=== PATIENT | male | born 1950 | race Caucasian/White ===

== ENCOUNTER 2017-01-30 06:25 | Emergency (ER) | payer MEDICARE, OTHER ==
[~2017-01-30 06:25] MED LIST: ASPIRIN81 MG; BACLOFEN10 M1 PO; CARDURA8 MG; CARDURA8 MG PO; CATAPRES0.1 M1 PEG; CEPACOL SORE T1 EAC2 MM; COLACE100 M1 PO; ENEMEEZ283 MG/5 M PR; EXELON1 PATCH .1; FIBER 61 TAB; FISH OIL 1,21 CAP.EC; FISH OIL 11000 MG/CA PEG; GABAPENTIN300 MG PO; GLUCOPHAGE1000 M1 PO; H; HUMULIN 70/30 V10 ML; HYDRALAZINE HCL10 M1 PEG; HYDRALAZINE HCL25 M1 PO; HYDROCHLOROTH12.5 MG; LISINOPRIL-HCTZ; LISINOPRIL-HCTZ PO; LOPRESSOR50 M1 PO; LORTAB 7.5/5001 TAB; LOVASTATIN40 M1 PO; MEVACOR40 MG; MILK OF MAGNESIA PEG; NORCO 7.5/325 T1 TAB PO; NORTRIPTYLIHNE25 MG; NORVASC10 M1 PO; NORVASC5 MG; NOVOLIN 70/30 V10 ML; NOVOLIN 70/30 V10 ML SC; NOVOLIN 70100 UNITS/ SC; NOVOLIN R100 U/ML; NOVOLOG MI100 UNITS/ SC; NOVOLOG100 U/M SQ; OXYCODONE-APAP1 CA; PAMELOR50 MG PO; PERIDEX118 ML SSP; PLAVIX75 M1 PO; PLAVIX75 MG PO; POTASSIUM595 ( 99 ); POTASSIUM99 M5 PO; PRILOSEC20 MG; PRINIVIL20 MG; PROZAC20 M3 PO; PROZAC20 MG; SKELAXIN800 MG; SKELAXIN800 MG PO; SMZ-TMP DS 800-1 TAB; TOPROL XL50 MG PO; TYLENOL325 M2 PO; ULTRAM50 MG PO; XALATAN2.5 M1 LEFT EYE; XALATAN2.5 M1 RIGHT EYE; ZOCOR20 M1 PO; [UNRECOGNIZED DRUG - OTHER] PR
[2017-01-30] MEDS ORDERED: ASPIRIN81 M1 PO (07:08)
[2017-01-30] MEDS ORDERED: LOVASTATIN20 M2 PO (07:08)
[2017-01-30] MEDS ORDERED: FLOMAX0.4 M1 PO (07:08)
[2017-01-30 07:17] LABS: BASO % 0.3 % (0-2); EOS % 3.2 % (0-7); EOSINOPHIL ABSOLUTE COUNT 0.3 tho/cmm (0.0-0.7); HCT-HEMATOCRIT 38.7 % (36.0-53.5); HGB-HEMOGLOBIN 13.6 gm/dl (13.5-17.0); IMMATURE GRANULOCYTES ABSOLUTE 0.02 tho/cmm (0-0.03); IMMATURE GRANULOCYTES PERCENT 0.2 % (0-0.3); LYMPH % 31.8 % (20-45); LYMPH ABSOLUTE COUNT 2.9 tho/cmm (0.8-4.5); MCH (MEAN CORPUSCULAR HGB) 28.8 pg (28.0-32.0); MCHC MEAN CORPUSCULAR HGB CONC 35.1 % (32.0-36.0); NEUTROPHIL ABSOLUTE COUNT 4.8 tho/cmm (1.6-8.0); NEUTROPHIL-AUTOMATED 4.8 tho/cmm (1.6-8.0); NEUTROPHILS % 53.5 % (40-80); PLATELET COUNT 166 tho/cmm (150-450); RED BLOOD COUNT 4.72 mil/cmm (4.40-5.70); RED CELL DISTRIBUTION WIDTH 12.7 % (12.4-16.4)
[2017-01-30 07:33] LABS: ANION GAP 13 mmol/L (0-20); BLOOD UREA NITROGEN 13 mg/dl (6-24); CALCIUM 8.5 mg/dl (8.5-10.5); CARBON DIOXIDE-VENOUS 29 mmol/L (22-32); CHLORIDE 104 mmol/l (96-110); CREATININE 0.71 mg/dl (0.60-1.30); GLUCOSE 116 mg/dL (70-110); POTASSIUM 3.6 mmol/L (3.7-5.1); SODIUM 142 mmol/L (135-145); eGFR VALUE FOR BLACK >90 mL/Min
[2017-01-30 09:18] LABS: URINE APPEARANCE CLEAR; URINE BILIRUBIN NEGATIVE (NEG); URINE BLOOD NEGATIVE (NEG); URINE COLOR YELLOW; URINE GLUCOSE (UA) NEGATIVE (NEG); URINE KETONE NEGATIVE (NEG); URINE LEUKOCYTE ESTERASE NEGATIVE (NEG); URINE NITRITE NEGATIVE (NEG); URINE PROTEIN NEGATIVE (NEG); URINE SPECIFIC GRAVITY 1.005 (1.003-1.030)
[2017-01-30] MEDS ORDERED: TRAMADOL HCL50 M2 PO (09:36)
== END 2017-01-30 09:47 ==
LOC: EDMED 06:25
PROVIDERS: Emergency Medicine
PROC: 4A0D7LZ Measurement of Urinary Volume, Via Natural or Artificial Opening (ICD-10-PCS; principal; 2017-01-30)
DX: R07.89 Other chest pain (principal); R35.1 Nocturia; I25.10 Atherosclerotic heart disease of native coronary artery without angina pectoris; I10 Essential (primary) hypertension; E11.9 Type 2 diabetes mellitus without complications; E78.5 Hyperlipidemia, unspecified; Z95.1 Presence of aortocoronary bypass graft; Z98.890 Other specified postprocedural states; Z79.82 Long term (current) use of aspirin; Z79.899 Other long term (current) drug therapy
CPT/HCPCS: J1885; J2270; J7030; Q9967